=== PATIENT | male | born 1950 | race Caucasian/White ===

== ENCOUNTER 2016-11-20 00:43 | Emergency (ER) | payer MEDICARE, BC ==
[2016-11-20 00:58] LABS: APPEARANCE,URINE Clear; BILIRUBIN,URINE NEGATIVE (NEGATIVE); COLOR,URINE Yellow; GLUCOSE, URINE (UA) NEGATIVE (NEGATIVE); KETONES,URINE NEGATIVE (NEGATIVE); LEUKOCYTE ESTERASE ,URINE 1+ (NEGATIVE); NITRATE,URINE NEGATIVE (NEGATIVE); OCCULT BLOOD,URINE 3+ (NEG-TRACE); UROBILINOGEN,URINE 0.2 (0.2-1.0 EU)
[2016-11-20 01:00] VITALS: TEMP 99.1
[2016-11-20] MEDS: APAP/OXYCODONE 325/5 TAB PO ONE (01:02)
[2016-11-20] MEDS: KETOROLAC TROMETHAMINE 30 MG/ML SOL IM ONE (01:02)
[2016-11-20] MEDS ORDERED: APAP/OXYCODONE 325/5 TAB ONE (01:03)
[2016-11-20] MEDS ORDERED: KETOROLAC TROMETHAMINE 30 MG/ML SOL ONE (01:03)
[2016-11-20 01:05] LABS: RBC,URINE 15-20 (0-3AV/HPF)
[2016-11-20] MEDS: CIPROFLOXACIN HCL 500 MG TAB PO SCH (02:00)
[2016-11-20 02:15] VITALS: BP 129/78; PULSE 68; RESP 18; O2SAT 94
== END 2016-11-20 02:15 | disposition home or self-care (01) | DRG 690 ==
LOC: ED 00:43
DX: N13.6 Pyonephrosis (principal); N28.89 Other specified disorders of kidney and ureter
CPT/HCPCS: 74176; 81001; 96372; 99283; 99284; J1885

== ENCOUNTER 2017-06-07 10:14 | Inpatient (IN) | payer MEDICARE, BC ==
[2017-06-07 11:04] LABS: BASOPHILS % (AUTO) 1 % (0-3); EOSINOPHILS % (AUTO) 3 % (0-9); HEMATOCRIT 43 % (39-53); MEAN CORPUSCULAR HGB CONC 35.1 gm/dl (32.0-36.0); MEAN CORPUSCULAR VOLUME 89 fL (80-100); MONOCYTES % (AUTO) 7.4 % (0-12); NEUTROPHILS % (AUTO) 68.3 % (37-80)
[2017-06-07 11:17] LABS: APPEARANCE,URINE Clear; BILIRUBIN,URINE NEGATIVE (NEGATIVE); COLOR,URINE Yellow; GLUCOSE, URINE (UA) 2+ (NEGATIVE); KETONES,URINE TRACE (NEGATIVE); LEUKOCYTE ESTERASE ,URINE 1+ (NEGATIVE); NITRATE,URINE NEGATIVE (NEGATIVE); OCCULT BLOOD,URINE NEGATIVE (NEG-TRACE); UROBILINOGEN,URINE 0.2 (0.2-1.0 EU)
[2017-06-07 11:17] LABS: HEMOGLOBIN A1C 7.4 % (4.8-6.0)
[2017-06-07 11:28] LABS: RBC,URINE 0-2 (0-3AV/HPF); WBC,URINE 20-30 (0-5AV/HPF)
[2017-06-07 11:29] LABS: ALBUMIN 3.3 gm/dl (3.4-5.0); ALT 29 IU/L (14-63); CALCIUM 9.3 mg/dl (8.5-10.1); GLOM FILT RATE 61 mL/min (>60); POTASSIUM 4.5 mMol/L (3.5-5.1); SODIUM 138 mMol/L (136-145)
[2017-06-07] MEDS ORDERED: SODIUM CHLORIDE 0.9% 1000ML 1,000 ML IV ONE (11:55)
[2017-06-07] MEDS ORDERED: LEVOFLOXACIN 25 MG/ML 750 MG in SODIUM CHLORIDE 0.9% 250 ML 150 ML IV SCH (12:00)
[2017-06-07] MEDS ORDERED: LEVOFLOXACIN 25 MG/ML SOL IV ONE (12:27)
[2017-06-07] MEDS: ATORVASTATIN 10 MG TAB PO SCH (18:24)
[2017-06-07] MEDS: DOCUSATE SODIUM 100 MG SGL PO SCH (18:24)
[2017-06-07] MEDS: METOPROLOL SUCCINATE 50 MG ER TAB PO SCH (18:24)
[2017-06-07] MEDS: MORPHINE SULFATE 15 MG ER TAB PO SCH (18:24)
[2017-06-07] MEDS: TAMSULOSIN HYDROCHLORIDE 0.4 MG CAP PO SCH (20:04)
[2017-06-07] MEDS: SENNOSIDES A AND B 8.6 MG TAB PO SCH (21:44)
[2017-06-08] MEDS: SODIUM CHLORIDE 0.9% FLUSH 10 ML SOL IV SCH ×6 (07:15→23:39)
[2017-06-08 07:20] LABS: BASOPHILS % (AUTO) 1 % (0-3); EOSINOPHILS % (AUTO) 4 % (0-9); HEMATOCRIT 41 % (39-53); MEAN CORPUSCULAR HGB CONC 35.2 gm/dl (32.0-36.0); MEAN CORPUSCULAR VOLUME 89 fL (80-100); MONOCYTES % (AUTO) 9.1 % (0-12); NEUTROPHILS % (AUTO) 59.5 % (37-80)
[2017-06-08 07:22] LABS: CALCIUM 8.6 mg/dl (8.5-10.1); POTASSIUM 4.2 mMol/L (3.5-5.1)
[2017-06-08] MEDS: MORPHINE SULFATE 15 MG ER TAB PO SCH ×2 (08:15→18:15)
[2017-06-08] MEDS: DOCUSATE SODIUM 100 MG SGL PO SCH ×3 (08:16→18:15)
[2017-06-08] MEDS: MULTIVITAMIN2 1 EA TAB PO SCH (08:16)
[2017-06-08] MEDS: ASPIRIN 81 MG CHEWABLE CTB PO SCH (08:16)
[2017-06-08] MEDS: ENOXAPARIN 40 MG SOL SC SCH (08:23)
[2017-06-08] MEDS: METFORMIN HYDROCHLORIDE 500 MG TAB PO SCH ×2 (11:04→18:15)
[2017-06-08] MEDS ORDERED: PHARMACOKINETICS 1 MISC PRN (11:07)
[2017-06-08] MEDS ORDERED: SODIUM CHLORIDE 0.9% 100 ML 100 ML IV ONE ×3 (11:33→20:31)
[2017-06-08] MEDS ORDERED: PIPERACILLIN/TAZOBACT 3.375 GM PDS IV ONE ×3 (11:33→20:31)
[2017-06-08] MEDS ORDERED: SODIUM CHLORIDE 0.9% 500 ML 500 ML IV ONE (11:54)
[2017-06-08] MEDS ORDERED: LEVOFLOXACIN 750MG/150 ML (PREMIX) IV SCH (12:00)
[2017-06-08] MEDS ORDERED: SODIUM CHLORIDE 0.9% IV SCH (12:00)
[2017-06-08] MEDS ORDERED: PDS IV SCH (12:00)
[2017-06-08] MEDS ORDERED: VANCOMYCIN HCL IV SCH (12:00)
[2017-06-08] MEDS: PIPERACILLIN/TAZOBACT 3.375 GM 3.375 GM in SODIUM CHLORIDE 0.9% 100 ML 100 ML IV SCH ×3 (12:01→22:50)
[2017-06-08] MEDS: SODIUM CHLORIDE 0.9% IV SCH ×2 (12:37→23:39)
[2017-06-08] MEDS: PDS IV SCH ×2 (12:37→23:39)
[2017-06-08] MEDS: VANCOMYCIN HCL IV SCH ×2 (12:37→23:39)
[2017-06-08] MEDS: ATORVASTATIN 10 MG TAB PO SCH (18:15)
[2017-06-08] MEDS: METOPROLOL SUCCINATE 50 MG ER TAB PO SCH (18:15)
[2017-06-08] MEDS: TAMSULOSIN HYDROCHLORIDE 0.4 MG CAP PO SCH (20:18)
[2017-06-08] MEDS: SENNOSIDES A AND B 8.6 MG TAB PO SCH (22:50)
[2017-06-09] MEDS ORDERED: SODIUM CHLORIDE 0.9% 100 ML 100 ML IV ONE ×3 (04:13→19:28)
[2017-06-09] MEDS ORDERED: PIPERACILLIN/TAZOBACT 3.375 GM PDS IV ONE ×3 (04:13→19:28)
[2017-06-09] MEDS: PIPERACILLIN/TAZOBACT 3.375 GM 3.375 GM in SODIUM CHLORIDE 0.9% 100 ML 100 ML IV SCH ×4 (04:57→22:50)
[2017-06-09] MEDS: DOCUSATE SODIUM 100 MG SGL PO SCH ×3 (08:33→17:51)
[2017-06-09] MEDS: ASPIRIN 81 MG CHEWABLE CTB PO SCH (08:33)
[2017-06-09] MEDS: MORPHINE SULFATE 15 MG ER TAB PO SCH ×2 (08:33→17:51)
[2017-06-09] MEDS: SODIUM CHLORIDE 0.9% FLUSH 10 ML SOL IV SCH ×6 (08:34→23:47)
[2017-06-09] MEDS: METFORMIN HYDROCHLORIDE 500 MG TAB PO SCH ×2 (08:37→17:53)
[2017-06-09] MEDS: MULTIVITAMIN2 1 EA TAB PO SCH (08:37)
[2017-06-09] MEDS: ENOXAPARIN 40 MG SOL SC SCH (08:37)
[2017-06-09] MEDS: PDS IV SCH ×2 (12:09→23:47)
[2017-06-09] MEDS: VANCOMYCIN HCL IV SCH ×2 (12:09→23:47)
[2017-06-09] MEDS: SODIUM CHLORIDE 0.9% IV SCH ×2 (12:09→23:47)
[2017-06-09] MEDS: METOPROLOL SUCCINATE 50 MG ER TAB PO SCH (17:51)
[2017-06-09] MEDS: ATORVASTATIN 10 MG TAB PO SCH (17:51)
[2017-06-09] MEDS ORDERED: VANCOMYCIN HYDROCHLORIDE 500 MG PDS IV ONE (19:27)
[2017-06-09] MEDS ORDERED: SODIUM CHLORIDE 0.9% 500 ML 500 ML IV ONE (19:28)
[2017-06-09] MEDS: TAMSULOSIN HYDROCHLORIDE 0.4 MG CAP PO SCH (20:27)
[2017-06-09] MEDS: SENNOSIDES A AND B 8.6 MG TAB PO SCH (22:50)
[2017-06-10] MEDS: PIPERACILLIN/TAZOBACT 3.375 GM 3.375 GM in SODIUM CHLORIDE 0.9% 100 ML 100 ML IV SCH ×4 (04:55→22:55)
[2017-06-10] MEDS: SODIUM CHLORIDE 0.9% FLUSH 10 ML SOL IV SCH ×6 (04:55→23:39)
[2017-06-10] MEDS: ENOXAPARIN 40 MG SOL SC SCH (08:40)
[2017-06-10] MEDS: ASPIRIN 81 MG CHEWABLE CTB PO SCH (08:41)
[2017-06-10] MEDS: DOCUSATE SODIUM 100 MG SGL PO SCH ×3 (08:41→21:09)
[2017-06-10] MEDS: MORPHINE SULFATE 15 MG ER TAB PO SCH ×2 (08:41→18:08)
[2017-06-10] MEDS: METFORMIN HYDROCHLORIDE 500 MG TAB PO SCH ×2 (08:41→18:07)
[2017-06-10] MEDS: MULTIVITAMIN2 1 EA TAB PO SCH (08:41)
[2017-06-10] MEDS ORDERED: PIPERACILLIN/TAZOBACT 3.375 GM PDS IV ONE ×3 (10:22→22:17)
[2017-06-10] MEDS ORDERED: SODIUM CHLORIDE 0.9% 100 ML 100 ML IV ONE ×3 (10:23→22:17)
[2017-06-10] MEDS ORDERED: SODIUM CHLORIDE 0.9% 500 ML 500 ML IV ONE (11:45)
[2017-06-10] MEDS ORDERED: VANCOMYCIN HYDROCHLORIDE 500 MG PDS IV ONE (11:45)
[2017-06-10] MEDS: PDS IV SCH ×2 (13:34→23:39)
[2017-06-10] MEDS: VANCOMYCIN HCL IV SCH ×2 (13:34→23:39)
[2017-06-10] MEDS: SODIUM CHLORIDE 0.9% IV SCH ×2 (13:34→23:39)
[2017-06-10] MEDS: METOPROLOL SUCCINATE 50 MG ER TAB PO SCH (18:08)
[2017-06-10] MEDS: ATORVASTATIN 10 MG TAB PO SCH (18:08)
[2017-06-10] MEDS: TAMSULOSIN HYDROCHLORIDE 0.4 MG CAP PO SCH (21:09)
[2017-06-10] MEDS: SENNOSIDES A AND B 8.6 MG TAB PO SCH (21:11)
[2017-06-11 00:19] VITALS: RESP 18
[2017-06-11] MEDS ORDERED: SODIUM CHLORIDE 0.9% 100 ML 100 ML IV ONE ×2 (04:07→10:37)
[2017-06-11] MEDS ORDERED: PIPERACILLIN/TAZOBACT 3.375 GM PDS IV ONE ×2 (04:07→10:37)
[2017-06-11] MEDS: SODIUM CHLORIDE 0.9% FLUSH 10 ML SOL IV SCH ×3 (05:00→12:29)
[2017-06-11] MEDS: PIPERACILLIN/TAZOBACT 3.375 GM 3.375 GM in SODIUM CHLORIDE 0.9% 100 ML 100 ML IV SCH ×2 (05:00→12:29)
[2017-06-11] MEDS: ENOXAPARIN 40 MG SOL SC SCH (09:10)
[2017-06-11] MEDS: DOCUSATE SODIUM 100 MG SGL PO SCH ×2 (09:12→12:45)
[2017-06-11] MEDS: MORPHINE SULFATE 15 MG ER TAB PO SCH (09:13)
[2017-06-11] MEDS: MULTIVITAMIN2 1 EA TAB PO SCH (09:14)
[2017-06-11] MEDS: ASPIRIN 81 MG CHEWABLE CTB PO SCH (09:14)
[2017-06-11] MEDS: METFORMIN HYDROCHLORIDE 500 MG TAB PO SCH (09:14)
[2017-06-11 11:11] VITALS: BP 103/68; PULSE 56; TEMP 97.7; O2SAT 96
[2017-06-11] MEDS ORDERED: PNEUMOCOCCAL VACCINE 0.5 ML SOL IM ONE (11:45)
[2017-06-11] MEDS: SODIUM CHLORIDE 0.9% IV SCH (12:30)
[2017-06-11] MEDS: VANCOMYCIN HCL IV SCH (12:30)
[2017-06-11] MEDS: PDS IV SCH (12:30)
[2017-06-11] MEDS ORDERED: ALBUTEROL/IPRATROPIUM 1 VIAL SOL ONE (13:01)
== END 2017-06-11 14:00 | disposition home health service (06) | DRG 300 ==
LOC: ED 10:14 → ACUTE CARE 12:28 → UNDOADMIN 12:28 → ACUTE CARE 12:55
PROVIDERS: ADMIT Emergency Medicine; ATTEND Emergency Medicine
DX: I83.018 Varicose veins of right lower extremity with ulcer other part of lower leg (principal); L97.819 Non-pressure chronic ulcer of other part of right lower leg with unspecified severity; E11.628 Type 2 diabetes mellitus with other skin complications; N30.00 Acute cystitis without hematuria; L03.115 Cellulitis of right lower limb; E86.0 Dehydration; S81.802A Unspecified open wound, left lower leg, initial encounter
CPT/HCPCS: 36415; 71010; 80048; 80053; 81001; 82962; 83036; 83880; 84484; 85025; 85651; 87040; 87070; 87077; 87186; 90732; 93005; 93306; 96365; 99070; 99213; 99232; 99291; J1650; J1956; J2543; J3370; J7620; Q9957; A6232; A6402; A6446; G0008

== ENCOUNTER 2019-03-04 12:29 | Day surgery (SDC) | payer MEDICARE ==
[~2019-03-04 12:29] MED LIST: LIDOCAINE HCL 1% MPF 30 SOL ONE; PROPOFOL 500 MG/50 ML EMU IV ONE
[2019-03-04 14:29] VITALS: RESP 20
[2019-03-04 14:41] VITALS: BP 148/83; PULSE 69; TEMP 97.7; O2SAT 96
== END 2019-03-04 14:51 | disposition home or self-care (01) | DRG 951 ==
LOC: SURG 12:29
PROVIDERS: ATTEND Surgery
DX: Z12.11 Encounter for screening for malignant neoplasm of colon (principal); Z86.010 Personal history of colon polyps; D12.5 Benign neoplasm of sigmoid colon
CPT/HCPCS: J2001; J2704